=== PATIENT | female | born 1945 | race Caucasian/White ===

== ENCOUNTER 2018-01-05 08:30 | Observation (INO) | payer OTHER ==
[2018-01-05] VITALS (11 sets, daily range): BP systolic 129–185; BP diastolic 59–96; PULSE 72–92; RESP 17–36; TEMP 97.6–98.4; O2SAT 95–100
[~2018-01-05] VITALS: Ht 154.9 cm; Wt 130.0 kg
[~2018-01-05 08:30] MED LIST: B-12500T3 PO; CALCTAB23 PO; DICL75 PO; ECOT81TA2 PO; ENAL2.5T40 PO; FURO1TAB93 PO; GABA300C3 PO; KCL20 PO; OMEP20TA PO; RANI150 PO; SIMV80TA PO; TAB-TAB PO; VITA500015 PO
--- NOTE | 2018-01-05 09:05 | PD ---
HPI Chief Complaint: Chest Pain Time Seen by Provider: 09:01 Travel History International Travel<30 days: No Contact w/Intl Traveler<30days: No Traveled to known affect area: No History of Present Illness HPI 72-year-old female patient with history of mitral valve regurg, CHF presents to the ER today for several days of worsening shortness of breath and dyspnea on exertion especially this morning. She has been coughing but not significant phlegm production. She has had some chest discomfort. She denies any fevers or any other issues. She has had several episodes of similar symptoms and it was related to CHF. She had not taken her diuretics today. Modifying Factors: None Associated Signs & Symptoms: Shortness of breath, dyspnea on exertion Risk Factors: CHF history PFSH Past Medical History Arthritis: Yes (knees, shoulders) Blood Disorders: No Heart Rhythm Problems: No Cancer: No Cardiovascular Problems: Yes High Cholesterol: Yes Chemotherapy: No Chest Pain: Yes Congestive Heart Failure: Yes Diabetes: No Diminished Hearing: No Endocrine: No Gastrointestinal Disorders: Yes (diverticulitis) Genitourinary: No Hypertension: Yes Immune Disorder: No Musculoskeletal: Yes Neurologic: No Psychiatric: No Reproductive: No Respiratory: No Integumentary: Yes (HOSPITALIZED MAY 2014 CELLULITIS) Immunizations Current: Yes Radiation Therapy: No Thyroid Disease: No ?: Not Menopausal: No Past Surgical History AICD: No Arteriovenous Shunt: No Eye Surgery: Yes (09/04 retna detached. cataract extractionn 08/02) Insulin Pump: No Joint Replacement: No Pacemaker: No Thoracic Surgery: No Other Surgery: Yes (right inguina repair 80's, bunionectomy left. heel spurs) Social History Alcohol Use: Yes (wine rarely) Tobacco Use: No Substance Use: No Allergies-Medications (Allergen,Severity, Reaction): Coded Allergies: No Known Drug Allergies (Verified Allergy, Unknown, 01/05/18) Uncoded Allergies: GREEN PEPPERS (Allergy, Severe, Hives, 05/06/07) nuts, seeds, corn (Allergy, Unknown, 06/09/03) Reported Meds & Prescriptions Reported Meds & Active Scripts Active Reported Fluticasone Nasal [place] 50 Mcg/Act Naspr 50 Mcg EACH NARE BID 50 mcg/spray Lomotil (Diphenoxylate-Atropine) 2.5-0.025 Mg Tab 1 Tab PO Q6H PRN Ranitidine (Ranitidine HCl) 150 Mg Tab 150 Mg PO BID Vitamin D2 (Ergocalciferol) 2,000 Unit Tab 2,000 Units PO DAILY Magnesium Oxide 400 Mg Tab 400 Mg PO DAILY Aspirin 81 (Aspirin) 81 Mg Tabdr 81 Mg PO DAILY Vitamin B-12 (Cyanocobalamin) 500 Mcg Tab 500 Mcg PO DAILY Multiple Vitamin 1 Tab 1 Tab PO DAILY Potassium Chloride ER (Potassium Chloride) 10 Meq Cap 10 Meq PO DAILY Furosemide 20 Mg Tab 20 Mg PO DAILY Calcium Citrate 250 Mg Calcium Tab 250 Mg PO BID Enalapril (Enalapril Maleate) 2.5 Mg Tab 2.5 Mg PO DAILY Omeprazole 20 Mg Tab 20 Mg PO BID Simvastatin 80 Mg Tab 80 Mg PO DAILY Review of Systems Except as stated in HPI: all other systems reviewed are Neg Physical Exam Narrative GENERAL: Well-developed obese elderly female patient in mild respiratory distress. Awake and oriented 3. SKIN: Focused skin assessment warm/dry. HEAD: Atraumatic. Normocephalic. EYES: Pupils equal and round. No scleral icterus. No injection or drainage. ENT: No nasal bleeding or discharge. Mucous membranes pink and moist. NECK: Trachea midline. Supple. CARDIOVASCULAR: Regular rate and rhythm. No murmur appreciated. RESPIRATORY: Mild accessory muscle use. Decreased throughout with intermittent wheezing. Breath sounds equal bilaterally. GASTROINTESTINAL: Abdomen soft, non-tender, nondistended. Hepatic and splenic margins not palpable. MUSCULOSKELETAL: No obvious deformities. No clubbing. No cyanosis. Bilateral trace edema of the legs. NEUROLOGICAL: Awake and alert. No obvious cranial nerve deficits. Motor grossly within normal limits. Normal speech. PSYCHIATRIC: Appropriate mood and affect; insight and judgment normal. Data Data Last Documented VS Vital Signs Date Time Temp Pulse Resp B/P (MAP) Pulse Ox O2 Delivery O2 Flow Rate FiO2 01/05/18 10:01 72 30 171/74 (106) 98 Nasal Cannula 3.00 01/05/18 08:38 98.0 Orders Orders Electrocardiogram (01/05/18 ) Complete Blood Count With Diff (01/05/18 09:01) Comprehensive Metabolic Panel (01/05/18 09:01) B-Type Natriuretic Peptide (01/05/18 09:01) Ckmb (Isoenzyme) Profile (01/05/18 09:01) Troponin I (01/05/18 09:01) Iv Access Insert/Monitor (01/05/18 09:01) Electrocardiogram (01/05/18 09:01) Ecg Monitoring (01/05/18 09:01) Oximetry (01/05/18 09:01) Oxygen Administration (01/05/18 09:01) Chest, Single Ap (01/05/18 09:01) Sodium Chloride 0.9% Flush (Ns Flush) (01/05/18 09:15) Nitroglycerin 2% Oint (Nitroglycerin 2% (01/05/18 09:15) Furosemide Inj (Lasix Inj) (01/05/18 10:00) CKMB (01/05/18 09:15) CKMB% (01/05/18 09:15) Admit Order (Ed Use Only) (01/05/18 10:45) Labs Laboratory Tests Test 01/05/18 09:15 White Blood Count 7.8 TH/MM3 Red Blood Count 4.06 MIL/MM3 Hemoglobin 12.7 GM/DL Hematocrit 35.9 % Mean Corpuscular Volume 88.3 FL Mean Corpuscular Hemoglobin 31.2 PG Mean Corpuscular Hemoglobin Concent 35.3 % Red Cell Distribution Width 13.9 % Platelet Count 205 TH/MM3 Mean Platelet Volume 8.5 FL Neutrophils (%) (Auto) 59.9 % Lymphocytes (%) (Auto) 27.6 % Monocytes (%) (Auto) 9.7 % Eosinophils (%) (Auto) 2.4 % Basophils (%) (Auto) 0.4 % Neutrophils # (Auto) 4.7 TH/MM3 Lymphocytes # (Auto) 2.2 TH/MM3 Monocytes # (Auto) 0.8 TH/MM3 Eosinophils # (Auto) 0.2 TH/MM3 Basophils # (Auto) 0.0 TH/MM3 CBC Comment DIFF FINAL Differential Comment Blood Urea Nitrogen 20 MG/DL Creatinine 0.83 MG/DL Random Glucose 98 MG/DL Total Protein 8.3 GM/DL Albumin 3.6 GM/DL Calcium Level 8.8 MG/DL Alkaline Phosphatase 73 U/L Aspartate Amino Transf (AST/SGOT) 28 U/L Alanine Aminotransferase (ALT/SGPT) 24 U/L Total Bilirubin 0.4 MG/DL Sodium Level 139 MEQ/L Potassium Level 4.3 MEQ/L Chloride Level 108 MEQ/L Carbon Dioxide Level 23.2 MEQ/L Anion Gap 8 MEQ/L Estimat Glomerular Filtration Rate 68 ML/MIN Total Creatine Kinase 123 U/L Creatine Kinase MB 1.9 NG/ML Troponin I 0.05 NG/ML B-Type Natriuretic Peptide 111 PG/ML MDM Medical Decision Making Medical Screen Exam Complete: Yes Emergency Medical Condition: Yes Medical Record Reviewed: Yes Interpretation(s) Laboratory Tests Test 01/05/18 09:15 Monocytes (%) (Auto) 9.7 % (0.0-8.0) Blood Urea Nitrogen 20 MG/DL (7-18) Total Protein 8.3 GM/DL (6.4-8.2) Chloride Level 108 MEQ/L (98-107) Estimat Glomerular Filtration Rate 68 ML/MIN (>89) B-Type Natriuretic Peptide 111 PG/ML (0-100) Last 24 hours Impressions Chest X-Ray 01/05/18 0901 Signed Impressions: Service Date/Time: Friday, January 05, 2018 09:20 - CONCLUSION: Worsening lung exam. Radiographic findings suggestive of congestive heart failure with pulmonary edema Maryam Chavez MD Differential Diagnosis CHF exacerbation versus pneumonia versus COPD Narrative Course Chest x-ray concerning for pulmonary edema. Nitroglycerin and Lasix as ordered for the patient. The rest of the lab work was fairly unremarkable. At this point, case is discussed with Dr. Tobin for admission for treatment of CHF exacerbation. Diagnosis Primary Impression: Acute systolic CHF (congestive heart failure) Admitting Information Admitting Physician Requests: Admit Eli Rucker MD Jan 05, 2018 09:05
[2018-01-05] MEDS ORDERED: NITROGLYCERIN 2% OINT 1 GM PACKET TOPICAL ONE (09:15)
[2018-01-05] MEDS ORDERED: SODIUM CHLORIDE 0.9% FLUSH 10 ML FLUSH IVF PRN (09:15)
[2018-01-05 09:30] LABS: AUTOMATED NEUTROPHIL # 4.7 TH/MM3 (1.8-7.7); BASOPHIL % 0.4 % (0.0-2.0); EOSINOPHIL # 0.2 TH/MM3 (0-0.4); EOSINOPHIL % 2.4 % (0.0-4.0); HEMATOCRIT 35.9 % (35.0-46.0); HEMOGLOBIN 12.7 GM/DL (11.6-15.3); LYMPH % 27.6 % (9.0-44.0); LYMPHOCYTE # 2.2 TH/MM3 (1.0-4.8); MEAN CELL VOLUME 88.3 FL (80.0-100.0); MEAN CORPUSCULAR HEMOGLOBIN 31.2 PG (27.0-34.0); MEAN CORPUSCULAR HGB CONC 35.3 % (32.0-36.0); MEAN PLATELET VOLUME 8.5 FL (7.0-11.0); MONO % 9.7 % (0.0-8.0); MONOCYTE # 0.8 TH/MM3 (0-0.9); NEUT % 59.9 % (16.0-70.0); PLATELET COUNT 205 TH/MM3 (150-450); RED BLOOD COUNT 4.06 MIL/MM3 (4.00-5.30); RED CELL DISTRIBUTION WIDTH 13.9 % (11.6-17.2); WHITE BLOOD COUNT 7.8 TH/MM3 (4.0-11.0)
[2018-01-05] MEDS ORDERED: POTA10CA PO (09:40)
[2018-01-05] MEDS ORDERED: FURO20TA PO (09:40)
[2018-01-05] MEDS ORDERED: VITA500T4 PO (09:40)
[2018-01-05] MEDS ORDERED: RANI150T PO (09:40)
[2018-01-05] MEDS ORDERED: OMEP20TA93 PO (09:40)
[2018-01-05] MEDS ORDERED: SIMV80TA PO (09:40)
[2018-01-05] MEDS ORDERED: ERGO2000 PO (09:40)
[2018-01-05] MEDS ORDERED: FLUT50SP EACH NARE (09:40)
[2018-01-05] MEDS ORDERED: CALC250T PO (09:40)
[2018-01-05] MEDS ORDERED: ASPI1TAB57 PO (09:40)
[2018-01-05] MEDS ORDERED: MAGN400T2 PO (09:40)
[2018-01-05] MEDS ORDERED: ENAL2.5T PO (09:40)
[2018-01-05] MEDS ORDERED: LOMO2.5T PO (09:40)
[2018-01-05] MEDS ORDERED: MULTTAB67 PO (09:40)
--- NOTE | 2018-01-05 09:41 | RADRPT ---
EXAM DATE/TIME: 01/05/2018 09:20 [place] COMPARISON: CHEST SINGLE AP, October 05, 2015, 8:14. INDICATIONS : Shortness of breath. MEDICAL HISTORY : None. SURGICAL HISTORY : None. ENCOUNTER: Initial ACUITY: 3 days PAIN SCORE: 0/10 LOCATION: Bilateral chest FINDINGS: AP upright portable view the chest demonstrates mild cardiomegaly. Diffuse cephalization of pulmonary vasculature and interstitial thickening as well as bilateral perihilar rounded air space opacities. Osseous structures are unremarkable. CONCLUSION: Worsening lung exam. Radiographic findings suggestive of congestive heart failure with pulmonary cade a Maryam Chavez MD on January 05, 2018 at 9:38 Board Certified Radiologist. This report was verified electronically.
[2018-01-05 09:46] LABS: ALT (GPT) 24 U/L (10-53)
[2018-01-05 09:49] LABS: ALBUMIN 3.6 GM/DL (3.4-5.0); AST (GOT) 28 U/L (15-37); BICARBONATE 23.2 MEQ/L (21.0-32.0); BLOOD UREA NITROGEN 20 MG/DL (7-18); CALCIUM 8.8 MG/DL (8.5-10.1); CHLORIDE 108 MEQ/L (98-107); CREATININE 0.83 MG/DL (0.50-1.00); GLOMERULAR FILTRATION RATE 68 ML/MIN (>89); GLUCOSE,RANDOM 98 MG/DL (74-106); SODIUM (NA) 139 MEQ/L (136-145)
[2018-01-05 09:59] LABS: ALKALINE PHOSPHATASE 73 U/L (45-117); TOTAL BILIRUBIN ADULT 0.4 MG/DL (0.2-1.0); TOTAL PROTEIN 8.3 GM/DL (6.4-8.2); TROPONIN I 0.05 NG/ML (0.02-0.05)
[2018-01-05] MEDS ORDERED: FUROSEMIDE 40 MG/4 ML VIAL IV PUSH ONE (10:00)
[2018-01-05] MEDS ORDERED: ACETAMINOPHEN 325 MG TAB PO PRN (12:45)
[2018-01-05] MEDS ORDERED: LACTULOSE SYRUP 20 GM/30 ML CUP PO PRN (12:45)
[2018-01-05] MEDS ORDERED: BISACODYL 10 MG SUPP RECTAL PRN (12:45)
[2018-01-05] MEDS ORDERED: SENNOSIDES 8.6 MG TAB PO PRN (12:45)
[2018-01-05] MEDS ORDERED: MAGNESIUM HYDROXIDE SUSP 30 ML CUP PO PRN (12:45)
[2018-01-05] MEDS ORDERED: ONDANSETRON HCL 4 MG/2 ML VIAL IVP PRN (12:45)
[2018-01-05] MEDS ORDERED: SODIUM CHLORIDE 0.9% FLUSH 10 ML FLUSH IV FLUSH PRN (12:45)
[2018-01-05] MEDS ORDERED: NALOXONE HCL 0.4 MG/ML AMP IV PUSH PRN (12:45)
[2018-01-05] MEDS: HEPARIN SODIUM - SQ 10,000 UNITS/ML VIAL SQ SCH ×2 (13:28→21:07)
--- NOTE | 2018-01-05 18:22 | HHI.HP ---
HPI Service [facility] Primary Care Physician Justin Lu MD Admission Diagnosis CHF exacerbation Diagnoses: Chief Complaint: Shortness of breath Travel History International Travel<30 Days: No Contact w/Intl Traveler <30 Da: No Traveled to Known Affected Are: No History of Present Illness This is a 72-year-old female with past medical history significant for systolic heart failure, mitral valve regurgitation, also arthritis, CAD who presents to [facility] complaining of several days of worsening shortness of breath and dyspnea on exertion especially in the morning. The patient states she has been coughing but there is no significant sputum production. Patient says she has had some chest discomfort. Denies any fevers, chills. Review of Systems As per HPI, other systems reviewed by me and negative. 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 Radiographic findings suggestive of congestive heart failure with pulmonary edema Maryam Chavez MD Allergies: Coded Allergies: No Known Drug Allergies (Verified Allergy, Unknown, 01/05/18) Uncoded Allergies: GREEN PEPPERS (Allergy, Severe, Hives, 05/06/07) nuts, seeds, corn (Allergy, Unknown, 06/09/03) Active Ordered Medications Current Medications Medications (Trade) Dose Ordered Sig/Olga Route Start Time Stop Time Status Last Admin (NS Flush) 2 ml UNSCH PRN IV FLUSH 01/05/18 12:45 (NS Flush) 2 ml BID IV FLUSH 01/05/18 21:00 (Tylenol) 650 mg Q4H PRN PO 01/05/18 12:45 (Zofran Inj) 4 mg Q6H PRN IVP 01/05/18 12:45 (Heparin Inj) 5,000 units Q8H SQ 01/05/18 13:00 01/05/18 13:28 (Narcan Inj) 0.4 mg UNSCH PRN IV PUSH 01/05/18 12:45 (Maria R-Colace) 1 tab BID PO 01/05/18 21:00 (Milk Of Magnesia Liq) 30 ml Q12H PRN PO 01/05/18 12:45 (Senokot) 17.2 mg Q12H PRN PO 01/05/18 12:45 (Dulcolax Supp) 10 mg DAILY PRN RECTAL 01/05/18 12:45 (Lactulose Liq) 30 ml DAILY PRN PO 01/05/18 12:45 Family History Brother passed from cardiomyopathy Brother passed from [place] Mother passed from AAA Father of heart disease and Parkinson's Social History Quit smoking 46 years ago Rare alcohol use Physical Exam Vital Signs Vital Signs Date Time Temp Pulse Resp B/P (MAP) Pulse Ox O2 Delivery O2 Flow Rate FiO2 01/05/18 18:00 01/05/18 17:30 78 17 129/59 (82) 99 Nasal Cannula 3.00 01/05/18 15:30 78 17 141/76 (97) 99 Nasal Cannula 3.00 01/05/18 13:00 78 17 154/75 (101) 99 Nasal Cannula 3.00 01/05/18 12:00 82 22 185/96 (125) 98 Nasal Cannula 3.00 01/05/18 11:12 84 30 149/66 (93) 98 Nasal Cannula 3.00 01/05/18 10:01 72 30 171/74 (106) 98 Nasal Cannula 3.00 01/05/18 09:35 97 Nasal Cannula 2.00 01/05/18 09:00 70 35 97 Nasal Cannula 3.00 01/05/18 08:38 98.0 92 36 160/79 (106) 95 Physical Exam GENERAL: This is a well-nourished, well-developed patient, in no apparent distress. SKIN: No rashes, ecchymoses or lesions. Cool and dry. HEAD: Atraumatic. Normocephalic. No temporal or scalp tenderness. EYES: Pupils equal round and reactive. Extraocular motions intact. No scleral icterus. No injection or drainage. ENT: Nose without bleeding, purulent drainage or septal hematoma. Throat without erythema, tonsillar hypertrophy or exudate. Uvula midline. Airway patent. NECK: Trachea midline. No JVD or lymphadenopathy. Supple, nontender, no meningeal signs. CARDIOVASCULAR: Regular rate and rhythm without murmurs, gallops, or rubs. RESPIRATORY: Clear to auscultation. Breath sounds equal bilaterally. No wheezes , rales, or rhonchi. GASTROINTESTINAL: Abdomen soft, non-tender, nondistended. No hepato-splenomegaly , or palpable masses. No guarding. MUSCULOSKELETAL: Extremities without clubbing, cyanosis, or edema. No joint tenderness, effusion, or edema noted. No calf tenderness. Negative Homans sign bilaterally. NEUROLOGICAL: Awake and alert. Cranial nerves II through XII intact. Motor and sensory grossly within normal limits. Five out of 5 muscle strength in all muscle groups. Normal speech. Laboratory Laboratory Tests Test 01/05/18 09:15 White Blood Count 7.8 Red Blood Count 4.06 Hemoglobin 12.7 Hematocrit 35.9 Mean Corpuscular Volume 88.3 Mean Corpuscular Hemoglobin 31.2 Mean Corpuscular Hemoglobin Concent 35.3 Red Cell Distribution Width 13.9 Platelet Count 205 Mean Platelet Volume 8.5 Neutrophils (%) (Auto) 59.9 Lymphocytes (%) (Auto) 27.6 Monocytes (%) (Auto) 9.7 Eosinophils (%) (Auto) 2.4 Basophils (%) (Auto) 0.4 Neutrophils # (Auto) 4.7 Lymphocytes # (Auto) 2.2 Monocytes # (Auto) 0.8 Eosinophils # (Auto) 0.2 Basophils # (Auto) 0.0 CBC Comment DIFF FINAL Differential Comment Blood Urea Nitrogen 20 Creatinine 0.83 Random Glucose 98 Total Protein 8.3 Albumin 3.6 Calcium Level 8.8 Alkaline Phosphatase 73 Aspartate Amino Transf (AST/SGOT) 28 Alanine Aminotransferase (ALT/SGPT) 24 Total Bilirubin 0.4 Sodium Level 139 Potassium Level 4.3 Chloride Level 108 Carbon Dioxide Level 23.2 Anion Gap 8 Estimat Glomerular Filtration Rate 68 Total Creatine Kinase 123 Creatine Kinase MB 1.9 Troponin I 0.05 B-Type Natriuretic Peptide 111 Result Diagram: 01/05/1815 01/05/18914 Imaging Last Impressions Chest X-Ray 01/05/18900 Signed Impressions: Service Date/Time: Friday, January 05, 2018 09:20 - CONCLUSION: Worsening lung exam. Radiographic findings suggestive of congestive heart failure with pulmonary edema Maryam Chavez MD Reviewed by me. Caprini VTE Risk Assessment Caprini VTE Risk Assessment: Mod/High Risk (score >= 2) Caprini Risk Assessment Model Point Value = 1 Point Value = 2 Point Value = 3 Point Value = 5 Age 41-60 Minor surgery BMI > 25 kg/m2 Swollen legs Varicose veins or History of unexplained or recurrent spontaneous Oral contraceptives or hormone replacement Sepsis (< 1 month) Serious lung disease, including pneumonia (< 1 month) Abnormal pulmonary function Acute myocardial infarction Congestive heart failure (< 1 month) History of inflammatory bowel disease Medical patient at bed rest Age 61-74 Arthroscopic surgery Major open surgery (> 45 min) Laparoscopic surgery (> 45 min) Malignancy Confined to bed (> 72 hours) Immobilizing plaster cast Central venous access Age >= 75 History of VTE Family history of VTE Factor V Leiden Prothrombin [id number] Lupus anticoagulant Anticardiolipin antibodies Elevated serum homocysteine Heparin-induced thrombocytopenia Other congenital or acquired thrombophilia Stroke (< 1 month) Elective arthroplasty Hip, pelvis, or leg fracture Acute spinal cord injury (< 1 month) Prophylaxis Regimen Total Risk Factor Score Risk Level Prophylaxis Regimen 0-1 Low Early ambulation 2 Moderate Order ONE of the following: *Sequential Compression Device (SCD) *Heparin 5000 units SQ BID 3-4 Higher Order ONE of the following medications: *Heparin 5000 units SQ TID *Enoxaparin/Lovenox 40 mg SQ daily (WT < 150 kg, CrCl > 30 mL/min) *Enoxaparin/Lovenox 30 mg SQ daily (WT < 150 kg, CrCl > 10-29 mL/min) *Enoxaparin/Lovenox 30 mg SQ BID (WT < 150 kg, CrCl > 30 mL/min) AND/OR *Sequential Compression Device (SCD) 5 or more Highest Order ONE of the following medications: *Heparin 5000 units SQ TID (Preferred with Epidurals) *Enoxaparin/Lovenox 40 mg SQ daily (WT < 150 kg, CrCl > 30 mL/min) *Enoxaparin/Lovenox 30 mg SQ daily (WT < 150 kg, CrCl > 10-29 mL/min) *Enoxaparin/Lovenox 30 mg SQ BID (WT < 150 kg, CrCl > 30 mL/min) AND *Sequential Compression Device (SCD) Assessment and Plan Problem List: (1) Acute on chronic systolic heart failure ICD Code: I50.23 - Acute on chronic systolic (congestive) heart failure Status: Acute (2) CAD (coronary artery disease) ICD Code: I25.10 - Atherosclerotic heart disease of [place] coronary artery without angina pectoris Status: Chronic (3) Obesity, morbid (more than 100 lbs over ideal weight or BMI > 40) ICD Code: E66.01 - Morbid (severe) obesity due to excess calories Status: Chronic (4) Osteoarthritis ICD Code: M19.90 - Unspecified osteoarthritis, unspecified site Status: Chronic Assessment and Plan Chest x ray concordant with CHF exacerbation. Chest x-ray reviewed by me. Place the patient observation Monitor on telemetry Start on Lasix 40 mg IV twice daily Continue ASA, KALEB inhibitor, statin Heparin for DVT prophylaxis Code Status Full code Discussed Condition With ED physician, patient. Problem Qualifiers (1) CAD (coronary artery disease): Qualified Codes: I25.10 - Atherosclerotic heart disease of [place] coronary artery without angina pectoris (2) Osteoarthritis: Qualified Codes: M19.90 - Unspecified osteoarthritis, unspecified site Steven Jacobs MD Jan 05, 2018 18:22
[2018-01-05] MEDS ORDERED: PILL SPLITTER OTHER PRN (19:00)
[2018-01-05] MEDS: DOCUSATE SODIUM 50 MG/SENNA 8.6 MG TAB PO SCH (21:07)
[2018-01-05] MEDS: SODIUM CHLORIDE 0.9% FLUSH 10 ML FLUSH IV FLUSH SCH (21:07)
[2018-01-05] MEDS: FLUTICASONE PROPIONATE 50 MCG/ACT 16 GM NASAL SPRAY EACH NARE SCH (21:07)
[2018-01-05] MEDS: CALCIUM CARBONATE 1.25 GM (CA 500 MG) TAB PO SCH (21:07)
[2018-01-06 00:23] VITALS: PULSE 73
[2018-01-06 03:03] VITALS: BP 112/55; PULSE 75; RESP 18; TEMP 97.8; O2SAT 99
[2018-01-06] MEDS: HEPARIN SODIUM - SQ 10,000 UNITS/ML VIAL SQ SCH (05:26)
[2018-01-06 06:56] LABS: ALBUMIN 3.2 GM/DL (3.4-5.0); ALT (GPT) 20 U/L (10-53); AST (GOT) 15 U/L (15-37); BICARBONATE 27.1 MEQ/L (21.0-32.0); BLOOD UREA NITROGEN 17 MG/DL (7-18); CALCIUM 8.8 MG/DL (8.5-10.1); CHLORIDE 106 MEQ/L (98-107); CREATININE 0.68 MG/DL (0.50-1.00); GLOMERULAR FILTRATION RATE 85 ML/MIN (>89); GLUCOSE,RANDOM 94 MG/DL (74-106); SODIUM (NA) 142 MEQ/L (136-145)
[2018-01-06 06:59] LABS: ALKALINE PHOSPHATASE 64 U/L (45-117); TOTAL BILIRUBIN ADULT 0.5 MG/DL (0.2-1.0); TOTAL PROTEIN 7.1 GM/DL (6.4-8.2)
[2018-01-06 08:00] VITALS: PULSE 75
[2018-01-06 08:03] VITALS: O2SAT 98
[2018-01-06 08:23] VITALS: BP 152/68; PULSE 76; RESP 20; TEMP 98.2; O2SAT 98
[2018-01-06] MEDS ORDERED: ENALAPRIL MALEATE 2.5 MG TAB PO SCH (09:00)
[2018-01-06] MEDS: FLUTICASONE PROPIONATE 50 MCG/ACT 16 GM NASAL SPRAY EACH NARE SCH (09:00)
[2018-01-06] MEDS: SODIUM CHLORIDE 0.9% FLUSH 10 ML FLUSH IV FLUSH SCH (09:00)
[2018-01-06] MEDS ORDERED: CHOLECALCIFEROL (VIT D3) 1000 UNIT TAB PO SCH (09:00)
[2018-01-06] MEDS ORDERED: PANTOPRAZOLE SOD 40 MG DELAYED RELEASE TAB PO SCH (09:00)
[2018-01-06] MEDS ORDERED: MULTIVITAMIN TAB PO SCH (09:00)
[2018-01-06] MEDS ORDERED: PRAVASTATIN SOD 80 MG TAB PO SCH (09:00)
[2018-01-06] MEDS ORDERED: MAGNESIUM OXIDE 400 MG TAB PO SCH (09:00)
[2018-01-06] MEDS ORDERED: FUROSEMIDE 40 MG/4 ML VIAL IV PUSH SCH (09:00)
[2018-01-06] MEDS ORDERED: CYANOCOBALAMIN 1,000 MCG TAB PO SCH (09:00)
[2018-01-06] MEDS ORDERED: ASPIRIN EC 81 MG TABEC PO SCH (09:00)
[2018-01-06] MEDS ORDERED: POTASSIUM CHLORIDE 10 MEQ CAP PO SCH (09:00)
[2018-01-06] MEDS: CALCIUM CARBONATE 1.25 GM (CA 500 MG) TAB PO SCH (10:20)
[2018-01-06] MEDS: DOCUSATE SODIUM 50 MG/SENNA 8.6 MG TAB PO SCH (10:21)
[2018-01-06 12:31] VITALS: BP 126/60; PULSE 80; RESP 18; TEMP 98.6; O2SAT 98
[2018-01-06] MEDS ORDERED: FURO40TA PO (12:42)
--- NOTE | 2018-01-06 12:44 | HHI.DCPOC ---
Discharge Care Plan Diagnosis: (1) Acute on chronic systolic heart failure (2) Obesity, morbid (more than 100 lbs over ideal weight or BMI > 40) (3) Osteoarthritis (4) CAD (coronary artery disease) Goals to Promote Your Health * To prevent worsening of your condition and complications * To maintain your health at the optimal level Directions to Meet Your Goals Take your medications as prescribed Follow your dietary instruction Follow activity as directed Keep your appointments as scheduled Take your immunizations and boosters as scheduled If your symptoms worsen call your PCP, if no PCP go to Urgent Care Center or Emergency Room Smoking is Dangerous to Your Health. Avoid second hand smoke Call the 24-hour hour crisis hotline for domestic abuse at Steven Jacobs MD Jan 06, 2018 12:43
--- NOTE | 2018-01-06 13:49 | HHI.FF ---
Face to Face Verification Diagnosis: (1) CAD (coronary artery disease) (2) Osteoarthritis (3) Obesity, morbid (more than 100 lbs over ideal weight or BMI > 40) (4) Acute on chronic systolic heart failure Physical Therapy Order: Improve ambulation Home Health Nursing Order: CHF education Nursing assessment with vital signs I have seen patient Darlene Dumont on 01/06/18. My clinical findings support the need for the requested home health care services because: Patient has SOB I certify that my clinical findings support that this patient is homebound because: Unsafe to leave home unassisted Poor cardiac reserve Steven Jacobs MD Jan 06, 2018 13:49
--- NOTE | 2018-01-06 13:52 | HHI.DS ---
Discharge Summary Admission Date Jan 05, 2018 at 10:47 Discharge Date: Jan 06, 2018 Admitting Diagnosis CHF exacerbation (1) Acute on chronic systolic heart failure ICD Code: I50.23 - Acute on chronic systolic (congestive) heart failure Diagnosis: Principal Status: Acute (2) CAD (coronary artery disease) ICD Code: I25.10 - Atherosclerotic heart disease of [place] coronary artery without angina pectoris Diagnosis: Principal Status: Chronic (3) Obesity, morbid (more than 100 lbs over ideal weight or BMI > 40) ICD Code: E66.01 - Morbid (severe) obesity due to excess calories Diagnosis: Secondary Status: Chronic (4) Osteoarthritis ICD Code: M19.90 - Unspecified osteoarthritis, unspecified site Diagnosis: Secondary Status: Chronic Procedures none Brief History - From Admission This is a 72-year-old female with past medical history significant for systolic heart failure, mitral valve regurgitation, also arthritis, CAD who presents to [facility] complaining of several days of worsening shortness of breath and dyspnea on exertion especially in the morning. The patient states she has been coughing but there is no significant sputum production. Patient says she has had some chest discomfort. Denies any fevers, chills. CBC/BMP: 01/05/18 0915 01/06/18 0600 Significant Findings Laboratory Tests Test 01/05/18 09:15 01/06/18 06:00 Monocytes (%) (Auto) 9.7 % (0.0-8.0) Blood Urea Nitrogen 20 MG/DL (7-18) Total Protein 8.3 GM/DL (6.4-8.2) Chloride Level 108 MEQ/L (98-107) Estimat Glomerular Filtration Rate 68 ML/MIN (>89) 85 ML/MIN (>89) B-Type Natriuretic Peptide 111 PG/ML (0-100) Albumin 3.2 GM/DL (3.4-5.0) Pt update on day of discharge Patient denies any chest pain. States that she was able to ambulate to the bathroom with much improved shortness of breath. Denies fevers or chills. Denies cough. Hospital Course Patient was admitted to the observation unit and placed on IV diuretics, supplemental oxygen. Patient also was monitored on telemetry. Aspirin, KALEB inhibitor and statin were continued. The patient was placed on DVT prophylaxis. The patient rapidly improved. PT was consulted and recommended discharging the patient home with home health physical therapy. Pt Condition on Discharge: Stable Discharge Disposition: Disch w/ Home Health Serv Discharge Time: <= 30 minutes Discharge Instructions DIET: Follow Instructions for: Heart Healthy Diet Activities you can perform: Regular-No Restrictions Activities to Avoid: Prolonged Standing, Strenuous Activity Other Activity Instructions: As per Pt instructions Follow up Referrals: PCP Follow-up - 1 Week New Medications: Furosemide (Furosemide) 40 Mg Tab 40 MG PO BID for chf, #60 TAB 0 Refills Continued Medications: Aspirin DR (Aspirin 81) 81 Mg Tabdr 81 MG PO DAILY, TAB 0 Refills Calcium Citrate (Calcium Citrate) 250 Mg Calcium Tab 250 MG PO BID for Calcium Supplement, TAB 0 Refills Cyanocobalamin (Vitamin B-12) 500 Mcg Tab 500 MCG PO DAILY for Nutritional Supplement, #1 BOTTLE 0 Refills Diphenoxylate-Atropine (Lomotil) 2.5-0.025 Mg Tab 1 TAB PO Q6H PRN for DIARRHEA, TAB 0 Refills Enalapril (Enalapril) 2.5 Mg Tab 2.5 MG PO DAILY, #30 TAB 0 Refills Ergocalciferol (Vitamin D2) 2,000 Unit Tab 2000 UNITS PO DAILY for Nutritional Supplement, TAB 0 Refills Fluticasone Nasal [place] (Fluticasone Nasal [place]) 50 Mcg/Act Naspr 50 MCG EACH NARE BID for Allergy Management, #1 BOTTLE 0 Refills 50 mcg/spray Magnesium Oxide (Magnesium Oxide) 400 Mg Tab 400 MG PO DAILY for Nutritional Supplement, TAB 0 Refills Multiple Vitamin (Multiple Vitamin) 1 Tab 1 TAB PO DAILY for Nutritional Supplement, TAB 0 Refills Omeprazole (Omeprazole) 20 Mg Tab 20 MG PO BID, #30 TAB 0 Refills Potassium Chloride ER (Potassium Chloride ER) 10 Meq Cap 10 MEQ PO DAILY for Electrolyte Replacement, #30 CAP 0 Refills Simvastatin (Simvastatin) 80 Mg Tab 80 MG PO DAILY for Cholesterol Management, #30 TAB 0 Refills Discontinued Medications: Furosemide (Furosemide) 20 Mg Tab 20 MG PO DAILY, #30 TAB 0 Refills Ranitidine (Ranitidine) 150 Mg Tab 150 MG PO BID for Heartburn Management, #60 TAB 0 Refills Steven Jacobs MD Jan 06, 2018 13:52
--- NOTE | 2018-01-06 20:03 | EKG ---
Date Performed: 01/05/2018 Time Performed: 08:56:24 PTAGE: 72 years EKG: ATRIAL FLUTTER/TACHYCARDIA MARKED LEFT AXIS DEVIATION LEFT BUNDLE BRANCH BLOCK Since the pr evious tracing, no significant change noted ABNORMAL ECG PREVIOUS TRACING : 10/15/2015 09.23 DOCTOR: Claudio Muñoz Interpretating Date/Time 01/06/2018 20:01:49
== END 2018-01-06 16:53 | disposition home or self-care (01) ==
LOC: NEPC 08:30 → NEDA 10:47 → NEDH 15:02 → NEPHCDU 18:04
PROVIDERS: ADMIT Hospitalist; ATTEND Hospitalist
DX: I50.23 Acute on chronic systolic (congestive) heart failure (principal); I11.0 Hypertensive heart disease with heart failure; I25.10 Atherosclerotic heart disease of native coronary artery without angina pectoris; E66.01 Morbid (severe) obesity due to excess calories; Z68.43 Body mass index [BMI] 50.0-59.9, adult; R07.89 Other chest pain; I34.0 Nonrheumatic mitral (valve) insufficiency; M19.90 Unspecified osteoarthritis, unspecified site
CPT/HCPCS: 71045; 80053; 82550; 82552; 83880; 84484; 85025; 93005; 96372; 96374; 96376; 97163; 99285; G0378; G8987; G8988; J1644; J1940